=== PATIENT | female | born 1940 | race Caucasian/White ===

== ENCOUNTER 2017-01-04 13:25 | Inpatient (IN) | payer MEDICARE, MEDICAID ==
[~2017-01-04] VITALS: Ht 152.4 cm; Wt 70.0 kg
[2017-01-04] MEDS ORDERED: [UNRECOGNIZED DRUG - REMARK] PO (14:02)
[2017-01-04] MEDS ORDERED: FOLI1TAB16 PO (14:02)
[2017-01-04] MEDS ORDERED: CINA30TA PO (14:02)
[2017-01-04] MEDS ORDERED: LORA1TAB PO (14:02)
[2017-01-04] MEDS ORDERED: CARV12.5 PO (14:02)
[2017-01-04] MEDS ORDERED: ZOLP5TAB2 PO (14:02)
[2017-01-04] MEDS ORDERED: SEVE800T8 PO (14:02)
[2017-01-04] MEDS ORDERED: CLON0.1T PO (14:02)
[2017-01-04] MEDS ORDERED: HYDR-894 PO (14:02)
[2017-01-04] MEDS ORDERED: NIFE60TA9 PO (14:02)
[2017-01-04] MEDS ORDERED: BENZ0.5T3 PO (14:02)
[2017-01-04] MEDS ORDERED: LORAZEPAM 2 MG/1 ML VIAL IV ONE (14:45)
[2017-01-04] MEDS ORDERED: diphenhydrAMINE 50 MG/1 ML VIAL IV ONE (14:45)
[2017-01-04] MEDS ORDERED: HALOPERIDOL LACTATE 5 MG/1 ML VIAL IV ONE (14:45)
[2017-01-04] MEDS ORDERED: HALOPERIDOL LACTATE 5 MG/1 ML VIAL ONE (14:57)
[2017-01-04] MEDS ORDERED: diphenhydrAMINE 50 MG/1 ML VIAL ONE (14:57)
[2017-01-04] MEDS ORDERED: LORAZEPAM 2 MG/1 ML VIAL ONE (14:58)
[2017-01-04 15:17] LABS: BASOPHILS % (AUTO) 0.6 % (0.0-2.0); EOSINOPHILS # (AUTO) 0.2 K/uL (0.0-0.7); EOSINOPHILS % (AUTO) 3.1 % (0.0-7.0); HEMATOCRIT 32.9 % (37.0-47.0); LYMPHOCYTES # (AUTO) 0.8 K/uL (0.8-4.8); LYMPHOCYTES % (AUTO) 12.5 % (20.5-51.5); MEAN CORPUSCULAR HEMOGLOBIN 30.5 uug (27.0-31.0); MEAN CORPUSCULAR HGB CONC 33 g/dL (32.0-37.0); MEAN CORPUSCULAR VOLUME 91.6 fL (81.0-99.0); MONOCYTES # (AUTO) 0.6 K/uL (0.1-1.30); MONOCYTES % (AUTO) 9.7 % (0.0-11.0); NEUTROPHILS # (AUTO) 4.7 K/uL (1.8-8.9); NEUTROPHILS % (AUTO) 74.1 % (38.5-71.5); PLATELET COUNT (AUTO) 261 K/uL (150-450); RED BLOOD CELL COUNT(AUTO) 3.59 MIL/uL (4.20-5.40); RED CELL DISTRIBUTION WIDTH 17.4 % (11.5-14.5); WHITE BLOOD COUNT (AUTO) 6.3 K/uL (4.0-11.2)
[2017-01-04 15:26] LABS: CARBON DIOXIDE 29 mmol/L (21-32); CHLORIDE 92 mmol/L (98-107); GLUCOSE 168 mg/dL (74-106); POTASSIUM 5.5 mmol/L (3.5-5.1); SODIUM SERUM 130 mmol/L (136-145); UREA NITROGEN, BLOOD 36 mg/dL (7-18)
[2017-01-04 15:33] LABS: ALANINE AMINOTRANSFERASE 15 U/L (14-59); ALBUMIN 3.2 g/dL (3.4-5.0); ALKALINE PHOSPHATASE 87 U/L (50-136); ASPARTATE AMINOTRANSFERASE 18 U/L (15-37); BILIRUBIN,DIRECT 0.1 mg/dL (0.0-0.2); BILIRUBIN,TOTAL 0.5 mg/dL (0.2-1.0); TOTAL PROTEIN, SERUM 7.6 g/dL (6.4-8.2); TROPONIN I 0.017 ng/mL (0.00-0.056)
[2017-01-04 15:36] LABS: AMMONIA < 10 umol/L (11-32)
[2017-01-04 15:38] LABS: LACTIC ACID 0.8 mmol/L (0.4-2.0)
[2017-01-04 15:56] LABS: THYROID STIMULATING HORMONE 5.008 mIU/mL (0.358-3.740)
[2017-01-04 16:25] LABS: ANISOCYTOSIS 1+
[2017-01-04] MEDS ORDERED: CLONIDINE HCL 0.2 MG TABLET PO ONE (18:15)
[2017-01-04] MEDS ORDERED: hydrALAZINE HCL 20 MG/1 ML VIAL IV ONE (18:15)
[2017-01-04] MEDS ORDERED: ONDANSETRON 4 MG/2 ML VIAL IV PRN (18:15)
[2017-01-04] MEDS: hydrALAZINE HCL 25 MG TABLET PO SCH ×2 (18:27→21:10)
[2017-01-04] MEDS ORDERED: hydrALAZINE HCL 20 MG/1 ML VIAL ONE (18:28)
[2017-01-04] MEDS ORDERED: hydrALAZINE HCL 25 MG TABLET ONE (18:29)
[2017-01-04] MEDS ORDERED: CLONIDINE HCL 0.2 MG TABLET ONE (18:29)
[2017-01-04 18:57] VITALS: BP 196/86
[2017-01-04 19:00] VITALS: BP 131/60
[2017-01-04] MEDS: DOCUSATE SODIUM 250 MG CAPSULE PO SCH (21:09)
[2017-01-04] MEDS: LORAZEPAM 1 MG TABLET PO PRN (21:10)
[2017-01-04] MEDS: BENZTROPINE MESYLATE 0.5 MG TABLET PO SCH (21:10)
[2017-01-04] MEDS: SEVELAMER CARBONATE 800 MG TABLET PO SCH (21:22)
[2017-01-04] MEDS: CARVEDILOL 12.5 MG TABLET PO SCH (21:22)
[2017-01-04] MEDS ORDERED: DEXTROSE 50% 50 ML DISP.SYRIN IV PRN (22:15)
[2017-01-04] MEDS: BLOOD SUGAR DIAGNOSTIC 1 EACH STRIP VI SCH (22:23)
[2017-01-04] MEDS: INSULIN REGULAR, HUMAN 300 UNITS/3 ML VIAL SQ PRN (22:29)
[2017-01-04] MEDS: MORPHINE SULFATE 2 MG/1 ML DISP.SYRIN IV PRN (22:56)
[2017-01-05] VITALS: BP 129/62
[2017-01-05 04:00] VITALS: BP 92/50
[2017-01-05] MEDS: MORPHINE SULFATE 2 MG/1 ML DISP.SYRIN IV PRN ×2 (04:51→08:54)
[2017-01-05 06:22] LABS: BASOPHILS % (AUTO) 0.5 % (0.0-2.0); EOSINOPHILS # (AUTO) 0.3 K/uL (0.0-0.7); EOSINOPHILS % (AUTO) 3.1 % (0.0-7.0); HEMATOCRIT 33.5 % (37.0-47.0); HEMOGLOBIN 11.1 g/dL (12.0-16.0); LYMPHOCYTES # (AUTO) 0.7 K/uL (0.8-4.8); LYMPHOCYTES % (AUTO) 7.7 % (20.5-51.5); MEAN CORPUSCULAR HEMOGLOBIN 30.1 uug (27.0-31.0); MEAN CORPUSCULAR HGB CONC 33 g/dL (32.0-37.0); MONOCYTES # (AUTO) 0.7 K/uL (0.1-1.30); NEUTROPHILS # (AUTO) 7.3 K/uL (1.8-8.9); NEUTROPHILS % (AUTO) 80.7 % (38.5-71.5); PLATELET COUNT (AUTO) 284 K/uL (150-450); RED BLOOD CELL COUNT(AUTO) 3.69 MIL/uL (4.20-5.40); RED CELL DISTRIBUTION WIDTH 17.2 % (11.5-14.5)
[2017-01-05] MEDS: hydrALAZINE HCL 25 MG TABLET PO SCH ×3 (06:36→22:33)
[2017-01-05] MEDS: PANTOPRAZOLE SODIUM 40 MG TABLET.DR PO SCH (06:39)
[2017-01-05 06:49] LABS: ALBUMIN 3.1 g/dL (3.4-5.0); BILIRUBIN,TOTAL 0.5 mg/dL (0.2-1.0); PHOSPHOROUS 4.3 mg/dL (2.5-4.9); POTASSIUM 5.3 mmol/L (3.5-5.1); TOTAL PROTEIN, SERUM 7.5 g/dL (6.4-8.2)
[2017-01-05 06:53] LABS: CREATININE 5.6 mg/dL (0.6-1.3)
[2017-01-05] MEDS: BLOOD SUGAR DIAGNOSTIC 1 EACH STRIP VI SCH ×4 (07:48→22:46)
[2017-01-05] MEDS: INSULIN REGULAR, HUMAN 300 UNIT/3 ML VIAL SQ PRN (07:52)
[2017-01-05] MEDS: FOLIC ACID 1 MG TABLET PO SCH (09:07)
[2017-01-05] MEDS: CLONIDINE HCL 0.1 MG TABLET PO SCH ×2 (09:07→17:41)
[2017-01-05] MEDS: CINACALCET HCL 30 MG TABLET PO SCH (09:07)
[2017-01-05] MEDS: CARVEDILOL 12.5 MG TABLET PO SCH ×2 (09:07→22:33)
[2017-01-05] MEDS: SEVELAMER CARBONATE 800 MG TABLET PO SCH ×3 (09:07→17:41)
[2017-01-05] MEDS: NIFEdipine XL 60 MG TABSR PO SCH (09:08)
[2017-01-05] MEDS ORDERED: ENALAPRILAT DIHYDRATE INJ 2.5 MG in IV NORMAL SALINE 50 ML IV PRN (09:45)
[2017-01-05] MEDS ORDERED: ENALAPRILAT DIHYDRATE INJ 1.25 MG in IV NORMAL SALINE 50 ML IV PRN (10:45)
[2017-01-05] MEDS: LORAZEPAM 1 MG TABLET PO PRN ×2 (11:43→22:32)
[2017-01-05] MEDS ORDERED: LORAZEPAM 2 MG/1 ML VIAL IV STA (12:39)
[2017-01-05 19:00] VITALS: BP 145/53
[2017-01-05] MEDS: DOCUSATE SODIUM 250 MG CAPSULE PO SCH (22:32)
[2017-01-05] MEDS: BENZTROPINE MESYLATE 0.5 MG TABLET PO SCH (22:34)
[2017-01-05] MEDS: INSULIN REGULAR, HUMAN 300 UNITS/3 ML VIAL SQ PRN (22:50)
[2017-01-06 06:03] LABS: BASOPHILS % (AUTO) 0.6 % (0.0-2.0); EOSINOPHILS # (AUTO) 0.2 K/uL (0.0-0.7); EOSINOPHILS % (AUTO) 3.4 % (0.0-7.0); HEMATOCRIT 30.4 % (37.0-47.0); HEMOGLOBIN 10.3 g/dL (12.0-16.0); LYMPHOCYTES # (AUTO) 0.8 K/uL (0.8-4.8); LYMPHOCYTES % (AUTO) 11.3 % (20.5-51.5); MEAN CORPUSCULAR HGB CONC 34 g/dL (32.0-37.0); MEAN CORPUSCULAR VOLUME 91.6 fL (81.0-99.0); MONOCYTES # (AUTO) 0.9 K/uL (0.1-1.30); MONOCYTES % (AUTO) 12.1 % (0.0-11.0); NEUTROPHILS # (AUTO) 5.2 K/uL (1.8-8.9); NEUTROPHILS % (AUTO) 72.6 % (38.5-71.5); PLATELET COUNT (AUTO) 256 K/uL (150-450); RED BLOOD CELL COUNT(AUTO) 3.32 MIL/uL (4.20-5.40); RED CELL DISTRIBUTION WIDTH 16.9 % (11.5-14.5); WHITE BLOOD COUNT (AUTO) 7.1 K/uL (4.0-11.2)
[2017-01-06] MEDS: PANTOPRAZOLE SODIUM 40 MG TABLET.DR PO SCH (06:22)
[2017-01-06] MEDS: hydrALAZINE HCL 25 MG TABLET PO SCH ×3 (06:25→21:42)
[2017-01-06 07:09] LABS: ALBUMIN 2.9 g/dL (3.4-5.0); BILIRUBIN,TOTAL 0.5 mg/dL (0.2-1.0); CALCIUM 8.3 mg/dL (8.5-10.1); PHOSPHOROUS 3.4 mg/dL (2.5-4.9); POTASSIUM 4.5 mmol/L (3.5-5.1); TOTAL PROTEIN, SERUM 7.2 g/dL (6.4-8.2)
[2017-01-06 07:14] LABS: CREATININE 4.7 mg/dL (0.6-1.3)
[2017-01-06] MEDS: BLOOD SUGAR DIAGNOSTIC 1 EACH STRIP VI SCH ×4 (07:54→20:36)
[2017-01-06] MEDS: SEVELAMER CARBONATE 800 MG TABLET PO SCH ×3 (08:49→17:07)
[2017-01-06] MEDS: CLONIDINE HCL 0.1 MG TABLET PO SCH ×3 (08:49→16:54)
[2017-01-06] MEDS: CINACALCET HCL 30 MG TABLET PO SCH (08:50)
[2017-01-06] MEDS: FOLIC ACID 1 MG TABLET PO SCH (08:50)
[2017-01-06] MEDS: CARVEDILOL 12.5 MG TABLET PO SCH ×2 (08:50→20:30)
[2017-01-06] MEDS: NIFEdipine XL 60 MG TABSR PO SCH (08:50)
[2017-01-06] MEDS: INSULIN REGULAR, HUMAN 300 UNIT/3 ML VIAL SQ PRN ×2 (08:53→12:06)
[2017-01-06] MEDS: LORAZEPAM 1 MG TABLET PO PRN (09:42)
[2017-01-06 11:03] VITALS: BP 100/47
[2017-01-06 15:01] VITALS: BP 116/51
[2017-01-06] MEDS ORDERED: VANCOMYCIN IV 1 G in PREMIXED 0 EACH IV ONE (18:00)
[2017-01-06 20:00] VITALS: BP 100/40
[2017-01-06] MEDS: INSULIN REGULAR, HUMAN 300 UNITS/3 ML VIAL SQ PRN (20:37)
[2017-01-06] MEDS: BENZTROPINE MESYLATE 0.5 MG TABLET PO SCH (20:38)
[2017-01-06] MEDS: DOCUSATE SODIUM 250 MG CAPSULE PO SCH (20:38)
[2017-01-07] MEDS: LORAZEPAM 1 MG TABLET PO PRN ×3 (00:33→20:21)
[2017-01-07 05:26] VITALS: BP 159/70
[2017-01-07] MEDS: hydrALAZINE HCL 25 MG TABLET PO SCH ×3 (05:44→21:59)
[2017-01-07] MEDS: PANTOPRAZOLE SODIUM 40 MG TABLET.DR PO SCH (06:16)
[2017-01-07] MEDS: BLOOD SUGAR DIAGNOSTIC 1 EACH STRIP VI SCH ×4 (06:32→20:32)
[2017-01-07] MEDS: SEVELAMER CARBONATE 800 MG TABLET PO SCH ×3 (08:44→17:40)
[2017-01-07] MEDS: CINACALCET HCL 30 MG TABLET PO SCH (08:44)
[2017-01-07] MEDS: FOLIC ACID 1 MG TABLET PO SCH (08:45)
[2017-01-07] MEDS: CLONIDINE HCL 0.1 MG TABLET PO SCH ×3 (08:45→17:41)
[2017-01-07] MEDS: NIFEdipine XL 60 MG TABSR PO SCH (08:45)
[2017-01-07] MEDS: CARVEDILOL 12.5 MG TABLET PO SCH ×2 (08:45→20:21)
[2017-01-07 11:01] VITALS: BP 125/59
[2017-01-07] MEDS: INSULIN REGULAR, HUMAN 300 UNIT/3 ML VIAL SQ PRN (11:22)
[2017-01-07] MEDS: MORPHINE SULFATE 2 MG/1 ML DISP.SYRIN IV PRN (15:27)
[2017-01-07 15:35] VITALS: BP 116/60
[2017-01-07] MEDS ORDERED: MORPHINE SULFATE 2 MG/1 ML DISP.SYRIN IV ONE (16:00)
[2017-01-07] MEDS ORDERED: VANCOMYCIN IV 1 G in PREMIXED 0 EACH IV ONE (17:00)
[2017-01-07] MEDS: ACETAMINOPHEN 325 MG TABLET PO PRN (19:31)
[2017-01-07 20:00] VITALS: BP 177/70
[2017-01-07] MEDS: BENZTROPINE MESYLATE 0.5 MG TABLET PO SCH (20:21)
[2017-01-07] MEDS: DOCUSATE SODIUM 100 MG CAPSULE PO SCH (20:32)
[2017-01-07] MEDS: INSULIN REGULAR, HUMAN 300 UNITS/3 ML VIAL SQ PRN (20:34)
[2017-01-07] MEDS ORDERED: DOCUSATE SODIUM 100 MG CAPSULE PO ONE (20:35)
[2017-01-07] MEDS ORDERED: LORAZEPAM 2 MG/1 ML VIAL IV ONE (22:59)
[2017-01-08] MEDS: ACETAMINOPHEN 325 MG TABLET PO PRN (01:45)
[2017-01-08] MEDS: PANTOPRAZOLE SODIUM 40 MG TABLET.DR PO SCH (06:22)
[2017-01-08] MEDS: hydrALAZINE HCL 25 MG TABLET PO SCH ×3 (06:23→22:22)
[2017-01-08] MEDS: LORAZEPAM 1 MG TABLET PO PRN (06:24)
[2017-01-08 06:31] VITALS: BP 175/69
[2017-01-08] MEDS: BLOOD SUGAR DIAGNOSTIC 1 EACH STRIP VI SCH ×4 (06:38→20:37)
[2017-01-08 06:55] LABS: ALBUMIN 2.8 g/dL (3.4-5.0); BILIRUBIN,TOTAL 0.5 mg/dL (0.2-1.0); CALCIUM 8.5 mg/dL (8.5-10.1); MAGNESIUM 2.1 mg/dL (1.8-2.4); PHOSPHOROUS 4.1 mg/dL (2.5-4.9); POTASSIUM 5.1 mmol/L (3.5-5.1); TOTAL PROTEIN, SERUM 6.9 g/dL (6.4-8.2)
[2017-01-08 07:03] LABS: CREATININE 5.7 mg/dL (0.6-1.3)
[2017-01-08 07:22] LABS: BASOPHILS % (AUTO) 0.3 % (0.0-2.0); EOSINOPHILS # (AUTO) 0.2 K/uL (0.0-0.7); HEMATOCRIT 30.8 % (37.0-47.0); HEMOGLOBIN 10.4 g/dL (12.0-16.0); LYMPHOCYTES # (AUTO) 0.7 K/uL (0.8-4.8); LYMPHOCYTES % (AUTO) 10.4 % (20.5-51.5); MEAN CORPUSCULAR HEMOGLOBIN 30.7 uug (27.0-31.0); MEAN CORPUSCULAR HGB CONC 34 g/dL (32.0-37.0); MEAN CORPUSCULAR VOLUME 91.4 fL (81.0-99.0); MONOCYTES # (AUTO) 1.2 K/uL (0.1-1.30); MONOCYTES % (AUTO) 16.8 % (0.0-11.0); NEUTROPHILS % (AUTO) 69.5 % (38.5-71.5); PLATELET COUNT (AUTO) 197 K/uL (150-450); RED BLOOD CELL COUNT(AUTO) 3.37 MIL/uL (4.20-5.40); RED CELL DISTRIBUTION WIDTH 16.8 % (11.5-14.5); WHITE BLOOD COUNT (AUTO) 7.1 K/uL (4.0-11.2)
[2017-01-08] MEDS: SEVELAMER CARBONATE 800 MG TABLET PO SCH ×3 (08:49→17:01)
[2017-01-08] MEDS: FOLIC ACID 1 MG TABLET PO SCH (08:50)
[2017-01-08] MEDS: CLONIDINE HCL 0.1 MG TABLET PO SCH ×3 (08:50→17:01)
[2017-01-08] MEDS: CARVEDILOL 12.5 MG TABLET PO SCH ×2 (08:50→20:34)
[2017-01-08] MEDS: NIFEdipine XL 60 MG TABSR PO SCH (08:50)
[2017-01-08] MEDS: CINACALCET HCL 30 MG TABLET PO SCH (08:51)
[2017-01-08] MEDS: INSULIN REGULAR, HUMAN 300 UNIT/3 ML VIAL SQ PRN ×2 (08:52→12:02)
[2017-01-08] MEDS ORDERED: CLONIDINE-TTS 1 PATCH TD SCH (10:00)
[2017-01-08 11:13] VITALS: BP 152/61
[2017-01-08 13:35] LABS: EOSINOPHILS % (MANUAL) 1 % (0-8); LYMPHOCYTES % (MANUAL) 18 % (20-40); MONOCYTES % (MANUAL) 10 % (2-10); NEUTROPHILS % (MANUAL) 71 % (42-75)
[2017-01-08 13:37] LABS: PLATELET ESTIMATE ADEQUATE
[2017-01-08 15:17] VITALS: BP 148/74
[2017-01-08 20:00] VITALS: BP 138/79
[2017-01-08] MEDS: DOCUSATE SODIUM 100 MG CAPSULE PO SCH (20:33)
[2017-01-08] MEDS: BENZTROPINE MESYLATE 0.5 MG TABLET PO SCH (20:34)
[2017-01-08] MEDS: QUETIAPINE FUMARATE 25 MG TABLET PO SCH (20:34)
[2017-01-09] MEDS: QUETIAPINE FUMARATE 25 MG TABLET PO PRN ×3 (00:18→13:35)
[2017-01-09 04:00] VITALS: BP 146/81
[2017-01-09] MEDS: hydrALAZINE HCL 25 MG TABLET PO SCH ×3 (05:57→21:45)
[2017-01-09] MEDS: PANTOPRAZOLE SODIUM 40 MG TABLET.DR PO SCH (06:00)
[2017-01-09] MEDS: BLOOD SUGAR DIAGNOSTIC 1 EACH STRIP VI SCH ×4 (06:01→21:58)
[2017-01-09] MEDS: ACETAMINOPHEN 325 MG TABLET PO PRN ×2 (06:04→12:23)
[2017-01-09 07:27] LABS: ALBUMIN 2.7 g/dL (3.4-5.0); BILIRUBIN,TOTAL 0.5 mg/dL (0.2-1.0); CALCIUM 8.3 mg/dL (8.5-10.1); MAGNESIUM 2.1 mg/dL (1.8-2.4); PHOSPHOROUS 4.6 mg/dL (2.5-4.9); POTASSIUM 5.6 mmol/L (3.5-5.1); TOTAL PROTEIN, SERUM 7.2 g/dL (6.4-8.2)
[2017-01-09 07:35] LABS: CREATININE 7.1 mg/dL (0.6-1.3)
[2017-01-09 07:47] LABS: BASOPHILS % (AUTO) 0.4 % (0.0-2.0); EOSINOPHILS # (AUTO) 0.2 K/uL (0.0-0.7); EOSINOPHILS % (AUTO) 2.2 % (0.0-7.0); HEMATOCRIT 29.7 % (37.0-47.0); LYMPHOCYTES % (AUTO) 13.3 % (20.5-51.5); MEAN CORPUSCULAR HEMOGLOBIN 30.9 uug (27.0-31.0); MEAN CORPUSCULAR HGB CONC 34 g/dL (32.0-37.0); MEAN CORPUSCULAR VOLUME 91.8 fL (81.0-99.0); MONOCYTES # (AUTO) 1.2 K/uL (0.1-1.30); MONOCYTES % (AUTO) 16.3 % (0.0-11.0); NEUTROPHILS # (AUTO) 5.2 K/uL (1.8-8.9); NEUTROPHILS % (AUTO) 67.8 % (38.5-71.5); PLATELET COUNT (AUTO) 232 K/uL (150-450); RED BLOOD CELL COUNT(AUTO) 3.24 MIL/uL (4.20-5.40); RED CELL DISTRIBUTION WIDTH 16.6 % (11.5-14.5); WHITE BLOOD COUNT (AUTO) 7.6 K/uL (4.0-11.2)
[2017-01-09] MEDS: CINACALCET HCL 30 MG TABLET PO SCH (08:38)
[2017-01-09] MEDS: SEVELAMER CARBONATE 800 MG TABLET PO SCH ×3 (08:38→17:23)
[2017-01-09] MEDS: FOLIC ACID 1 MG TABLET PO SCH (08:39)
[2017-01-09] MEDS: NIFEdipine XL 60 MG TABSR PO SCH (08:40)
[2017-01-09] MEDS: CLONIDINE HCL 0.1 MG TABLET PO SCH ×3 (08:40→16:22)
[2017-01-09] MEDS: CARVEDILOL 12.5 MG TABLET PO SCH ×2 (08:40→20:45)
[2017-01-09 10:31] LABS: BAND % (MANUAL) 2 % (0-10); EOSINOPHILS % (MANUAL) 4 % (0-8); LYMPHOCYTES % (MANUAL) 15 % (20-40); MONOCYTES % (MANUAL) 10 % (2-10); NEUTROPHILS % (MANUAL) 69 % (42-75)
[2017-01-09 10:32] LABS: PLATELET ESTIMATE ADEQUATE
[2017-01-09 10:33] LABS: ANISOCYTOSIS 1+
[2017-01-09 11:34] VITALS: BP 148/65
[2017-01-09] MEDS: INSULIN REGULAR, HUMAN 300 UNIT/3 ML VIAL SQ PRN ×2 (12:21→16:17)
[2017-01-09 16:06] VITALS: BP 150/69
[2017-01-09] MEDS: LORAZEPAM 1 MG TABLET PO PRN ×2 (16:09→23:12)
[2017-01-09 19:00] VITALS: BP 115/52
[2017-01-09] MEDS: BENZTROPINE MESYLATE 0.5 MG TABLET PO SCH (21:28)
[2017-01-09] MEDS: DOCUSATE SODIUM 100 MG CAPSULE PO SCH (21:29)
[2017-01-09] MEDS: QUETIAPINE FUMARATE 25 MG TABLET PO SCH (21:29)
[2017-01-10] MEDS ORDERED: HALOPERIDOL LACTATE 5 MG/1 ML VIAL IM STA (00:10)
[2017-01-10] MEDS ORDERED: HALOPERIDOL DECANOATE 50 MG/1 ML AMPUL IM ONE (00:15)
[2017-01-10 04:00] VITALS: BP 117/43
[2017-01-10] MEDS: hydrALAZINE HCL 25 MG TABLET PO SCH ×2 (05:49→13:42)
[2017-01-10] MEDS: PANTOPRAZOLE SODIUM 40 MG TABLET.DR PO SCH (05:49)
[2017-01-10] MEDS: QUETIAPINE FUMARATE 25 MG TABLET PO PRN (05:49)
[2017-01-10] MEDS: BLOOD SUGAR DIAGNOSTIC 1 EACH STRIP VI SCH ×3 (06:01→16:59)
[2017-01-10] MEDS: CINACALCET HCL 30 MG TABLET PO SCH (08:44)
[2017-01-10] MEDS: FOLIC ACID 1 MG TABLET PO SCH (08:44)
[2017-01-10] MEDS: SEVELAMER CARBONATE 800 MG TABLET PO SCH ×2 (08:44→12:43)
[2017-01-10] MEDS: NIFEdipine XL 60 MG TABSR PO SCH (08:46)
[2017-01-10] MEDS: CLONIDINE HCL 0.1 MG TABLET PO SCH ×3 (08:46→17:08)
[2017-01-10] MEDS: CARVEDILOL 12.5 MG TABLET PO SCH (08:47)
[2017-01-10] MEDS: INSULIN REGULAR, HUMAN 300 UNIT/3 ML VIAL SQ PRN ×2 (11:51→17:08)
[2017-01-10 12:10] VITALS: BP 146/60
[2017-01-10] MEDS ORDERED: Acetaminophen PO (14:44)
[2017-01-10] MEDS ORDERED: LORA-259 PO (14:44)
[2017-01-10] MEDS ORDERED: RXVAN XX (14:44)
[2017-01-10] MEDS ORDERED: PANT40TA2 PO (14:44)
[2017-01-10] MEDS ORDERED: Blood Sugar Diagnostic VI (14:44)
[2017-01-10] MEDS ORDERED: HYDR-894 PO (14:44)
[2017-01-10] MEDS ORDERED: QUET25TA PO ×2 (14:44)
[2017-01-10] MEDS ORDERED: CLON1PAT TD (14:44)
[2017-01-10] MEDS ORDERED: INSU100V28 SQ ×2 (14:44)
[2017-01-10] MEDS ORDERED: CLON0.1T14 PO (14:44)
[2017-01-10 16:36] VITALS: BP 144/59
[2017-01-10 17:08] VITALS: BP 125/56
== END 2017-01-10 17:30 | DRG 291 ==
LOC: ER 13:25 → TELE 18:09 → MED 01-05 12:12
PROVIDERS: ADMIT Internal Medicine; ATTEND Internal Medicine
PROC: 5A1D60Z (ICD-10-PCS; principal; 2017-01-05)
DX: I13.2 Hypertensive heart and chronic kidney disease with heart failure and with stage 5 chronic kidney disease, or end stage renal disease (principal); G93.40 Encephalopathy, unspecified; N18.6 End stage renal disease; I50.33 Acute on chronic diastolic (congestive) heart failure; E87.1 Hypo-osmolality and hyponatremia; L03.114 Cellulitis of left upper limb; D68.59 Other primary thrombophilia; F01.51 Vascular dementia, unspecified severity, with behavioral disturbance; J90 Pleural effusion, not elsewhere classified; E11.22 Type 2 diabetes mellitus with diabetic chronic kidney disease; Z99.2 Dependence on renal dialysis; D64.9 Anemia, unspecified; F03.90 Unspecified dementia, unspecified severity, without behavioral disturbance, psychotic disturbance, mood disturbance, and anxiety; E11.65 Type 2 diabetes mellitus with hyperglycemia; Z79.899 Other long term (current) drug therapy; R09.02 Hypoxemia; E78.5 Hyperlipidemia, unspecified; E87.5 Hyperkalemia; D50.9 Iron deficiency anemia, unspecified; E66.9 Obesity, unspecified; I11.0 Hypertensive heart disease with heart failure; Z74.09 Other reduced mobility; M79.604 Pain in right leg; R06.00 Dyspnea, unspecified; F32.9 Major depressive disorder, single episode, unspecified
CPT/HCPCS: 36415; 70030-TC; 70450; 71010; 83550; 83605; 83735; 84100; 84443; 85025; 85730; 87040; 92506; 93005; 93307; 97001; A4663; J0360; J1200; J1630; J1815; J2060; J2270; J2405; J3370; J3490; J7030; J7040